=== PATIENT | male | born 1980 | race Two or more races ===

== ENCOUNTER 2016-07-23 10:50 | Emergency (ER) | payer SELFPAY ==
[~2016-07-23] VITALS: Ht 162.6 cm; Wt 68.0 kg
--- NOTE | 2016-07-23 10:54 | PHYS DOC ---
Adult General Chief Complaint Chief Complaint: ABDOMINAL PAIN HPI HPI Patient is a 36 year old male presenting to the emergency department for evaluation of severe epigastric pain has been going on since last night. He says it is burning in the middle of his chest associated with nausea and vomiting but denies any fevers chills dysuria hematuria diarrhea or constipation. He denies any testicular pain or prior abdominal surgeries. He appears uncomfortable but in no obvious distress. Review of Systems Review of Systems Constitutional: Denies fever or chills [] Eyes: Denies change in visual acuity, redness, or eye pain [] HENT: Denies nasal congestion or sore throat [] Respiratory: Denies cough or shortness of breath [] Cardiovascular: No additional information not addressed in HPI [] GI: + abdominal pain, nausea, vomiting. No bloody stools or diarrhea [] : Denies dysuria or hematuria [] Musculoskeletal: Denies back pain or joint pain [] Integument: Denies rash or skin lesions [] Neurologic: Denies headache, focal weakness or sensory changes [] Current Medications Current Medications Current Medications Medications (Trade) Dose Ordered Sig/Rivka Start Time Stop Time Status Last Admin Dose Admin Info (Do NOT chart on this entry -- for MONITORING) 1 each PRN DAILY PRN 07/23/16 11:45 07/25/16 11:44 Iohexol (Omnipaque 300 Mg/ml) 75 ml 1X ONCE 07/23/16 11:45 07/23/16 11:46 DC 07/23/16 11:54 75 ML Morphine Sulfate 5 mg 1X ONCE 07/23/16 11:00 07/23/16 11:13 DC 07/23/16 11:23 5 MG Multi-Ingredient Mouthwash/Gargle (Gi Cocktail Single Dose) 15 ml 1X ONCE 07/23/16 11:00 07/23/16 11:13 DC 07/23/16 11:22 15 ML Ondansetron HCl (Zofran) 8 mg 1X ONCE 07/23/16 11:00 07/23/16 11:13 DC 07/23/16 11:23 8 MG Pantoprazole Sodium (Protonix Vial) 40 mg 1X ONCE 07/23/16 11:00 07/23/16 11:13 DC 07/23/16 11:22 40 MG Sodium Chloride 1,000 ml @ 1,000 mls/hr 1X ONCE 07/23/16 11:00 07/23/16 11:59 DC 07/23/16 11:23 1,000 MLS/HR Allergies Allergies Allergies Coded Allergies Type Severity Reaction Last Updated Verified No Known Drug Allergies 07/23/16 No Physical Exam Physical Exam Constitutional: Well developed, well nourished, no acute distress, non-toxic appearance. [] HENT: Normocephalic, atraumatic, bilateral external ears normal, oropharynx moist, no oral exudates, nose normal. [] Eyes: PERRLA, EOMI, conjunctiva normal, no discharge. [] Neck: Normal range of motion, no tenderness, supple, no stridor. [] Cardiovascular:Heart rate regular rhythm, no murmur [] Lungs & Thorax: Bilateral breath sounds clear to auscultation [] Abdomen: Bowel sounds normal, soft, + epigastric tenderness, no rebound or guarding, no masses, no pulsatile masses. [] Skin: Warm, dry, no erythema, no rash. [] Back: No tenderness, no CVA tenderness. [] Extremities: No tenderness, no cyanosis, no clubbing, ROM intact, no edema. [] Neurologic: Alert and oriented X 3, normal motor function, normal sensory function, no focal deficits noted. [] Current Patient Data Vital Signs Vital Signs Date Time Temp Pulse Resp B/P (MAP) Pulse Ox O2 Delivery O2 Flow Rate FiO2 07/23/16 11:23 20 100 Room Air 07/23/16 11:00 98.0 54 148/79 (102) 98.0 Lab Values Laboratory Tests Test 07/23/16 11:05 07/23/16 11:20 White Blood Count 10.7 x10^3/uL (4.0-11.0) Red Blood Count 5.24 x10^6/uL (4.30-5.70) Hemoglobin 16.9 g/dL (13.0-17.5) Hematocrit 47.5 % (39.0-53.0) Mean Corpuscular Volume 91 fL (79-100) Mean Corpuscular Hemoglobin 32 pg (25-35) Mean Corpuscular Hemoglobin Concent 36 g/dL (31-37) Red Cell Distribution Width 12.8 % (11.5-14.5) Platelet Count 357 x10^3/uL (140-400) Neutrophils (%) (Auto) 72 % (31-73) Lymphocytes (%) (Auto) 21 % (24-48) L Monocytes (%) (Auto) 7 % (0-9) Eosinophils (%) (Auto) 0 % (0-3) Basophils (%) (Auto) 0 % (0-3) Neutrophils # (Auto) 7.7 x10^3uL (1.8-7.7) Lymphocytes # (Auto) 2.2 x10^3/uL (1.0-4.8) Monocytes # (Auto) 0.7 x10^3/uL (0.0-1.1) Eosinophils # (Auto) 0.0 x10^3/uL (0.0-0.7) Basophils # (Auto) 0.0 x10^3/uL (0.0-0.2) Sodium Level 137 mmol/L (136-145) Potassium Level 3.5 mmol/L (3.5-5.1) Chloride Level 96 mmol/L (98-107) L Carbon Dioxide Level 31 mmol/L (21-32) Anion Gap 10 (6-14) Blood Urea Nitrogen 7 mg/dL (8-26) L Creatinine 1.1 mg/dL (0.7-1.3) Estimated GFR (Cockcroft-Gault) 76.6 BUN/Creatinine Ratio 6 (6-20) Glucose Level 121 mg/dL (70-99) H Calcium Level 10.0 mg/dL (8.5-10.1) Magnesium Level 2.0 mg/dL (1.8-2.4) Total Bilirubin 0.5 mg/dL (0.2-1.0) Aspartate Amino Transferase (AST) 27 U/L (15-37) Alanine Aminotransferase (ALT) 63 U/L (16-63) Alkaline Phosphatase 75 U/L (46-116) Total Protein 8.8 g/dL (6.4-8.2) H Albumin 4.6 g/dL (3.4-5.0) Albumin/Globulin Ratio 1.1 (1.0-1.7) Lipase 63 U/L (73-393) L Ethyl Alcohol Level < 10 mg/dL (0-10) Urine Collection Type Unknown Urine Color Jessica Urine Clarity Cloudy Urine pH 8.5 Urine Specific [place] 1.020 Urine Protein 100 mg/dL (NEG-TRACE) Urine Glucose (UA) Negative mg/dL (NEG) Urine Ketones (Stick) Negative mg/dL (NEG) Urine Blood Negative (NEG) Urine Nitrite Negative (NEG) Urine Bilirubin Negative (NEG) Urine Urobilinogen Dipstick 1.0 mg/dL (0.2 mg/dL) Urine Leukocyte Esterase Negative (NEG) Urine RBC 3-5 /HPF (0-2) Urine WBC Occ /HPF (0-4) Urine Squamous Epithelial Cells Occ /LPF Urine Amorphous Sediment Present /HPF Urine Bacteria Few /HPF (0-FEW) Urine Mucus Marked /LPF Urine Opiates Screen Neg (NEG) Urine Methadone Screen Neg (NEG) Urine Barbiturates Neg (NEG) Urine Phencyclidine Screen Neg (NEG) Urine Amphetamine/Methamphetamine Neg (NEG) Urine Benzodiazepines Screen Neg (NEG) Urine Cocaine Screen Pos (NEG) Urine Cannabinoids Screen Neg (NEG) Urine Ethyl Alcohol Neg (NEG) Laboratory Tests 07/23/16 11:05 Laboratory Tests 07/23/16 11:05 EKG EKG [] Radiology/Procedures Radiology/Procedures EXAM: CT abdomen/pelvis with contrast. HISTORY: Epigastric and right upper quadrant pain. TECHNIQUE: Computed tomography of the abdomen and pelvis was performed after the intravenous administration of 75 mL Omnipaque 300. COMPARISON: None. FINDINGS: Lung windows through the visualized portions of the bases reveal mild atelectasis. Bone windows reveal no suspicious lesions. The liver, gallbladder, pancreas, adrenal glands, kidneys and spleen are unremarkable. There are no pathologically enlarged lymph nodes. There is no obstruction. The appendix is not inflamed. There is no free fluid or air. IMPRESSION: 1. No cause for acute pain is identified. *One or more of the following individualized dose reduction techniques were utilized for this examination: 1. Automated exposure control. 2. Adjustment of the mA and/or kV according to patient size. 3. Use of iterative reconstruction technique. DICTATED and SIGNED BY: LINDSEY TRAVIS MD DATE: 07/23/16 1211 Course & Med Decision Making Course & Med Decision Making Patient feeling much better after symptomatically treatment here. Patient has repeat benign abdominal exam and is tolerating fluids without any difficulty. Likely attributable to gastritis. Given patient appears well with normal vital signs benign physical exam and workup he will be discharged with Prilosec and [place] Zofran and told to follow with the GI doctor and come back to the ER sooner with any worsening pain fevers vomiting or other general concerns. Dragon Disclaimer Dragon Disclaimer This electronic medical record was generated, in whole or in part, using a voice recognition dictation system. Departure Departure Impression: Primary Impression: Abdominal pain Additional Impression: Gastritis Disposition: HOME, SELF-CARE Condition: GOOD Referrals: ANAHI PRETTY MD Patient Instructions: Gastritis, Adult Additional Instructions: Drink plenty of water and Gatorade and if he feels like eating eat soft non- irritating foods. Use Tums and Maalox for breakthrough pain. Follow with a primary care provider and/or a GI doctor later this week and come back to the ER sooner with any worsening pain fevers vomiting or other general concerns. Scripts Omeprazole Magnesium (PRILOSEC OTC) 20 Mg Tablet.dr 1 TAB PO DAILY, #30 TAB 0 Refills Prov: HAL GAVIN DO 07/23/16 Ondansetron (ZOFRAN ODT) 4 Mg Tab.rapdis 4 MG PO BID Y for NAUSEA/VOMITING, #10 TAB Prov: HAL GAVIN DO 07/23/16 Hydrocodone/Apap 5-325 (NORCO 5-325 TABLET) 1 Each Tablet 1 TAB PO PRN Q6HRS Y for PAIN, #20 TAB 0 Refills Prov: HAL GAVIN DO 07/23/16 Problem Qualifiers Primary Impression: Abdominal pain Abdominal location: epigastric Qualified Codes: R10.13 - Epigastric pain HAL GAVIN DO Jul 23, 2016 10:54
[2016-07-23] MEDS ORDERED: PANTOPRAZOLE IV PUSH 40 MG VIAL. IVP ONE (11:00)
[2016-07-23] MEDS ORDERED: LIDO:MAALOX:DONNATAL 1:1:1 15 ML SINGLE DOSE SWSW ONE (11:00)
[2016-07-23] MEDS ORDERED: ONDANSETRON PF 4 MG/2 ML VIAL. IV ONE (11:00)
[2016-07-23] MEDS ORDERED: MORPHINE SULFATE 10 MG/ML VIAL. IV ONE (11:00)
[2016-07-23] MEDS ORDERED: IV NORMAL SALINE 1000ML BAG 1,000 ML IV ONE (11:00)
[2016-07-23 11:19] LABS: BASO % 0 % (0-3); EOS % 0 % (0-3); HEMATOCRIT 47.5 % (39.0-53.0); HEMOGLOBIN 16.9 g/dL (13.0-17.5); LYMPH # 2.2 x10^3/uL (1.0-4.8); LYMPH % 21 % (24-48); MEAN CORPUSCULAR HEMOGLOBIN 32 pg (25-35); MEAN CORPUSCULAR HGB CONC 36 g/dL (31-37); MEAN CORPUSCULAR VOLUME 91 fL (79-100); MONO % 7 % (0-9); NEUT % 72 % (31-73); PLATELET COUNT 357 x10^3/uL (140-400); RED BLOOD COUNT 5.24 x10^6/uL (4.30-5.70); RED CELL DISTRIBUTION WIDTH 12.8 % (11.5-14.5); WHITE BLOOD COUNT 10.7 x10^3/uL (4.0-11.0)
[2016-07-23 11:26] LABS: CREATININE 1.1 mg/dL (0.7-1.3); GFR 76.6; POTASSIUM 3.5 mmol/L (3.5-5.1)
[2016-07-23 11:32] LABS: ALBUMIN 4.6 g/dL (3.4-5.0); ALBUMIN/GLOBULIN RATIO 1.1 (1.0-1.7); TOTAL BILIRUBIN 0.5 mg/dL (0.2-1.0); TOTAL PROTEIN 8.8 g/dL (6.4-8.2)
[2016-07-23 11:34] LABS: BILIRUBIN,URINE NEGATIVE (NEG); GLUCOSE,URINE NEGATIVE (NEG); NITRITE,URINE NEGATIVE (NEG); PH,URINE 8.5; PROTEIN,URINE 100 mg/dL (NEG-TRACE)
[2016-07-23 11:42] LABS: BARBITURATES NEG (NEG); BENZODIAZEPINES NEG (NEG); CANNABINOIDS NEG (NEG); COCAINE POS (NEG); METHADONE NEG (NEG); OPIATES NEG (NEG); PHENCYCLIDINE NEG (NEG)
[2016-07-23] MEDS ORDERED: IOHEXOL 300 MG/ML 75 ML VIAL IV ONE (11:45)
[2016-07-23] MEDS ORDERED: CONTRAST GIVEN MC PRN (11:45)
[2016-07-23 12:13] LABS: BACTERIA,URINE FEW /HPF (0-FEW); SQUAMOUS EPITHELIAL CELL,UR OCC /LPF; WBC,URINE OCC /HPF (0-4)
--- NOTE | 2016-07-23 12:23 | RAD ---
EXAM: CT abdomen/pelvis with contrast. HISTORY: Epigastric and right upper quadrant pain. TECHNIQUE: Computed tomography of the abdomen and pelvis was performed after the intravenous administration of 75 mL Omnipaque 300. COMPARISON: None. FINDINGS: Lung windows through the visualized portions of the bases reveal mild atelectasis. Bone windows reveal no suspicious lesions. The liver, gallbladder, pancreas, adrenal glands, kidneys and spleen are unremarkable. There are no pathologically enlarged lymph nodes. There is no obstruction. The appendix is not inflamed. There is no free fluid or air. IMPRESSION: 1. No cause for acute pain is identified. *One or more of the following individualized dose reduction techniques were utilized for this examination: 1. Automated exposure control. 2. Adjustment of the mA and/or kV according to patient size. 3. Use of iterative reconstruction technique.
[2016-07-23] MEDS ORDERED: OMEP20TA63 PO (12:59)
[2016-07-23] MEDS ORDERED: ONDA4TAB10 PO (12:59)
[2016-07-23] MEDS ORDERED: HYDR-971 PO (12:59)
[2016-07-23 13:39] VITALS: BP 114/56
== END 2016-07-23 13:39 | disposition home or self-care (01) ==
LOC: ER 10:50
DX: K29.70 Gastritis, unspecified, without bleeding (principal); R07.89 Other chest pain; R11.2 Nausea with vomiting, unspecified
CPT/HCPCS: 36415; 74177; 80053; 80305; 80320; 81001; 83690; 83735; 85027; 96361; 96374; 96375; 99285; C9113; J2270; J2405; J7030; Q9967; G0480; G0481